=== PATIENT | female | born 1980 ===

== ENCOUNTER 2018-04-25 09:06 | Emergency (ER) | payer SELFPAY ==
[2018-04-25 09:12] VITALS: BMI 35.4
[2018-04-25 09:14] VITALS: TEMP 98.3; O2SAT 98
--- NOTE | 2018-04-25 09:32 | ED PDOC ---
HPI: CCC, URI, Sore Throat Time Seen by Provider: 04/25/18 09:09 Chief Complaint (Nursing): Fever Chief Complaint (Provider): Cough History Per: Patient History/Exam Limitations: no limitations Onset/Duration Of Symptoms: Days (x 6) Current Symptoms Are (Timing): Still Present Associated Symptoms: Cough Additional Complaint(s): 37 year old female with no significant medical history presents to the ED with a non productive cough associated with back pain for 6 days. Patient reports back pain is only when coughing. She also states that she experienced one episode of vomiting 2 days ago and none since. Denies fever and shortness of breath. PMD: none provided Past Medical History Reviewed: Historical Data, Nursing Documentation, Vital Signs Vital Signs: Last Vital Signs Temp 98.3 F 04/25/18 09:12 Pulse 72 04/25/18 09:12 Resp 17 04/25/18 09:12 BP 107/74 04/25/18 09:12 Pulse Ox 98 04/25/18 09:12 - Medical History PMH: No Chronic Diseases - Surgical History Surgical History: No Surg Hx - Family History Family History: States: Unknown Family Hx - Home Medications Home Medications: Ambulatory Orders Medication Instructions Recorded Azithromycin [Zithromax] 250 mg PO DAILY #6 tab 04/25/18 Benzonatate [Tessalon Perle] 100 mg PO Q8 #12 capsule 04/25/18 - Allergies Allergies/Adverse Reactions: Allergies Allergy/AdvReac Type Severity Reaction Status Date / Time No Known Allergies Allergy Verified 04/25/18 09:29 Review of Systems ROS Statement: Except As Marked, All Systems Reviewed And Found Negative Constitutional: Negative for: Fever Respiratory: Positive for: Cough (non-productive). Negative for: Shortness of Breath Gastrointestinal: Positive for: Vomiting (1 episode 2 days ago) Musculoskeletal: Positive for: Back Pain (when coughing) Physical Exam - Reviewed Nursing Documentation Reviewed: Yes Vital Signs Reviewed: Yes - Physical Exam Appears: Positive for: Non-toxic, No Acute Distress Head Exam: Positive for: ATRAUMATIC, NORMAL INSPECTION, NORMOCEPHALIC Skin: Positive for: Normal Color, Warm, Dry Eye Exam: Positive for: EOMI, Normal appearance, PERRL Neck: Positive for: Normal, Painless ROM, Supple Cardiovascular/Chest: Positive for: Regular Rate, Rhythm. Negative for: Murmur Respiratory: Positive for: Rhonchi (scattered rhonchi bilaterally). Negative for: Wheezing, Respiratory Distress Gastrointestinal/Abdominal: Positive for: Normal Exam, Soft. Negative for: Tenderness Extremity: Positive for: Normal ROM. Negative for: Tenderness, Deformity Neurologic/Psych: Positive for: Alert, Oriented. Negative for: Motor/Sensory Deficits - ECG O2 Sat by Pulse Oximetry: 98 (RA) Pulse Ox Interpretation: Normal Medical Decision Making Medical Decision Makin:28 Impression: cough and back pain Initial Plan: --CXR Scribe Attestation: Documented by Lucila Owusu, acting as a scribe for Rico Renee MD Provider Scribe Attestation: All medical record entries made by the Scribe were at my direction and personally dictated by me. I have reviewed the chart and agree that the record accurately reflects my personal performance of the history, physical exam, medical decision making, and the department course for this patient. I have also personally directed, reviewed, and agree with the discharge instructions and disposition. Disposition - Clinical Impression Clinical Impression: Bronchitis - Patient ED Disposition Is Patient to be Admitted: No Counseled Patient/Family Regarding: Studies Performed, Diagnosis, Need For Followup, Rx Given - Disposition Referrals: [facility] [Outside] Disposition: Routine/Home Disposition Time: 10:13 Condition: FAIR Prescriptions: Azithromycin [Zithromax] 250 mg PO DAILY #6 tab Benzonatate [Tessalon Perle] 100 mg PO Q8 #12 capsule Instructions: Acute Bronchitis Forms: [facility] (Malay) Print Language: ICELANDIC
--- NOTE | 2018-04-25 10:33 | RAD ---
Date of service: 04/25/2018 HISTORY: Cough COMPARISON: No prior. TECHNIQUE: Chest PA and lateral FINDINGS: LINES AND TUBES: None. LUNG AND PLEURA: The lungs are well inflated and clear. No pleural effusion or pneumothorax. HEART AND MEDIASTINUM: The heart is not enlarged. No aortic atherosclerotic calcification present. The hilar and mediastinal contours are within normal limits. SKELETAL STRUCTURES: The bony structures are within normal limits for the patient's age. VISUALIZED UPPER ABDOMEN: Normal. OTHER FINDINGS: None. IMPRESSION: No active pulmonary disease.
[2018-04-25 10:34] VITALS: BP 116/70; PULSE 76; RESP 18
== END 2018-04-25 10:28 | disposition home or self-care (01) ==
LOC: H.ER 09:06
DX: J40 Bronchitis, not specified as acute or chronic (principal)

== ENCOUNTER 2018-09-27 11:05 | Emergency (ER) | payer OTHER ==
[2018-09-27 11:10] VITALS: BMI 40.6
--- NOTE | 2018-09-27 11:22 | ED PDOC ---
HPI: Abdomen Time Seen by Provider: 09/27/18 11:14 Chief Complaint (Nursing): Abdominal Pain History Per: Patient Onset/Duration Of Symptoms: Days (2) Current Symptoms Are (Timing): Still Present Severity: Moderate Location Of Pain/Discomfort: RLQ Associated Symptoms: Nausea. denies: Fever, Vomiting, Diarrhea, Urinary Symptoms Exacerbating Factors: None Additional Complaint(s): RLQ abd pain assoc with nausea since yesterday. No vomiting or diarrhea. Denies urinary sxs. LMP 2 weeks ago. Denies vaginal bleeding or discharge. Past Medical History Vital Signs: Last Vital Signs Temp 98.4 F 09/27/18 11:11 Pulse 72 09/27/18 11:11 Resp 16 09/27/18 11:11 BP 116/72 09/27/18 11:11 Pulse Ox 97 09/27/18 11:11 - Medical History PMH: No Chronic Diseases - Family History Family History: States: Unknown Family Hx - Home Medications Home Medications: Ambulatory Orders Medication Instructions Recorded Azithromycin [Zithromax] 250 mg PO DAILY #6 tab 04/25/18 Benzonatate [Tessalon Perle] 100 mg PO Q8 #12 capsule 04/25/18 - Allergies Allergies/Adverse Reactions: Allergies Allergy/AdvReac Type Severity Reaction Status Date / Time No Known Allergies Allergy Verified 09/27/18 11:19 Review of Systems ROS Statement: Except As Marked, All Systems Reviewed And Found Negative Gastrointestinal: Positive for: Nausea, Abdominal Pain Physical Exam - Reviewed Nursing Documentation Reviewed: Yes Vital Signs Reviewed: Yes - Physical Exam Appears: Positive for: Non-toxic, No Acute Distress Head Exam: Positive for: ATRAUMATIC, NORMAL INSPECTION, NORMOCEPHALIC Skin: Positive for: Normal Color, Warm, DRY Eye Exam: Positive for: EOMI, Normal appearance, PERRL ENT: Positive for: Normal ENT Inspection Neck: Positive for: Normal, Painless ROM Cardiovascular/Chest: Positive for: Regular Rate, Rhythm Respiratory: Positive for: CNT, Normal Breath Sounds Gastrointestinal/Abdominal: Positive for: Soft, Tenderness (RLQ). Negative for: Rebound Back: Positive for: Normal Inspection Extremity: Positive for: Normal ROM Neurological/Psych: Positive for: Awake, Alert, Normal Tone - Laboratory Results Result Diagrams: 09/27/18 11:40 09/27/18 12:27 - ECG O2 Sat by Pulse Oximetry: 97 Disposition - Clinical Impression Clinical Impression: Abdominal pain in female - Patient ED Disposition Is Patient to be Admitted: Transfer of Care - Disposition Disposition: Transfer of Care Disposition Time: 15:22 Condition: FAIR Forms: [facility] (Danish) Patient Signed Over To: Anna Avina (Pending ultrasound and reeval)
[2018-09-27 11:59] LABS: BASO % 0.6 % (0.0-2.0); EOS # 0.3 K/uL (0.0-0.7); EOS % 3.3 % (0.0-4.0); HEMOGLOBIN 11.7 g/dL (12.0-16.0); LYMPH # 2.9 K/uL (1.0-4.3); MEAN CELL VOLUME 85.2 fl (81.0-99.0); MEAN CORPUSCULAR HEMOGLOBIN 27.9 pg (27.0-31.0); MEAN CORPUSCULAR HGB CONC 32.8 g/dL (33.0-37.0); MEAN PLATELET VOLUME 7.3 fl (7.2-11.7); MONO # 0.7 K/uL (0.0-0.8); MONO % 8.1 % (0.0-10.0); NEUT # 4.2 K/uL (1.8-7.0); NRBC % 0.1 % (0.0-0.0); RBC 4.18 Mil/uL (3.80-5.20); RED CELL DISTRIBUTION WIDTH 14.6 % (11.5-14.5); WHITE BLOOD COUNT 8.2 K/uL (4.8-10.8)
[2018-09-27] MEDS ORDERED: Sodium Chloride 0.9% 50 ML IV ONE (12:42)
[2018-09-27] MEDS ORDERED: Iohexol 300 100 ML IJ ONE (12:42)
[2018-09-27 13:04] LABS: ALB/GLOB RATIO 1.2 (1.0-2.1); ALBUMIN 3.9 g/dL (3.5-5.0); BLOOD UREA NITROGEN 9 mg/dl (7-17); CALCIUM 8.7 mg/dL (8.4-10.2); GFR NON-AFRICAN AMERICAN > 60
[2018-09-27 13:05] LABS: ALT/SGPT 24 U/L (9-52); AST/SGOT 30 U/L (14-36)
--- NOTE | 2018-09-27 14:15 | CT ---
Date of service: 2018-09-27 13:17:59 PROCEDURE: CT abdomen and pelvis HISTORY: Abdominal pain COMPARISON: No prior study available for comparison TECHNIQUE: Contiguous axial images of the abdomen and pelvis performed in standard fashion following oral and intravenous injection of approximately 95 cc Omnipaque 300 contrast material. Additional 2D sagittal and coronal reformats generated. Radiation dose: Total exam DLP = 948.04 mGy-cm. This CT exam was performed using one or more of the following dose reduction techniques: Automated exposure control, adjustment of the mA and/or kV according to patient size, and/or use of iterative reconstruction technique. FINDINGS: LOWER THORAX: Heart is mildly enlarged. No significant pericardial effusion. There is a tiny hiatal hernia. LIVER: Liver is mildly enlarged measuring nearly 20 cm in CC dimension. Mild to moderate diffuse fatty hepatic infiltration. No obvious hepatic mass collection or calcification. GALLBLADDER AND BILE DUCTS: Physiologically distended. No evidence of urinary gallbladder calculi. PANCREAS: Pancreas is unremarkable without mass collection or calcification. SPLEEN: Spleen exhibits normal size and attenuation pattern without mass collection or calcification. ADRENALS: No adrenal lesions. KIDNEYS AND URETERS: Unremarkable. No stone or hydronephrosis. Kidneys demonstrate symmetric nephrograms. No evidence of nephrolithiasis or hydronephrosis. No obvious renal mass or collection. BLADDER: Urinary bladder is incompletely distended with slight thick-walled appearance. Rule out cystitis REPRODUCTIVE: There is a large right-sided adnexal cyst which measures approximately 5.2 x 4.6 cm. No gross free fluid seen in the cul de sac. APPENDIX: Normal appendix. BOWEL: Evaluation of the bowel is slightly limited due to the lack of oral contrast material. The stomach is incompletely distended with slight thick-walled appearance. Visualized loops of small bowel exhibit normal contour and caliber. No evidence of acute mechanical small bowel obstruction. Large bowel appears unremarkable without definitive mural wall thickening. PERITONEUM: Unremarkable. No fluid collection. No free air. There is a small medium-sized fat containing umbilical hernia. LYMPH NODES: Unremarkable. No enlarged lymph nodes. VASCULATURE: Unremarkable. No aortic aneurysm. No aortic atherosclerotic calcification or mural plaque present. BONES: Minimal marginal anterior osteophyte formation seen at several levels no acute fractures. OTHER FINDINGS: None. IMPRESSION: Large right-sided adnexal cyst. Mild hepatomegaly with moderate to moderate fatty hepatic infiltration. Small to medium sized fat containing umbilical hernia.
--- NOTE | 2018-09-27 15:41 | US ---
Date of service: 09/27/2018 HISTORY: RLQ pain LMP 2 weeks ago COMPARISON: CT abdomen and pelvis performed earlier the same day. TECHNIQUE: Transabdominal and transvaginal pelvic ultrasound was performed. FINDINGS: UTERUS: Measures 9.2 x 7.4 x 5.8 cm. Anteverted and enlarged. There is heterogeneous myometrial echotexture. No fibroid or other mass lesion seen. ENDOMETRIUM: Measures 5.0 mm in diameter. Normal in appearance. CERVIX: No cervical abnormality identified. RIGHT OVARY: Measures 3.7 x 3.2 x 2.9 cm. No solid mass. Normal flow. There is a 4.7 x 6.0 x 4.1 cm cystic mass in the right adnexa. There is a 1.8 x 2.1 x 1.7 cm ovarian cyst. LEFT OVARY: Not visualized. FREE FLUID: No significant free fluid noted. OTHER FINDINGS: None. IMPRESSION: 4.7 x 6.0 x 4.1 cm cystic mass in the right adnexa could represent an exophytic ovarian cyst, cystadenoma, cystadenocarcinoma or parametrial cyst. No evidence for torsion. Clinical follow-up is advised and follow-up ultrasound in 3-6 month interval is recommended to assess stability/resolution of this cyst.
--- NOTE | 2018-09-27 16:10 | ED PDOC ---
- Laboratory Results Result Diagrams: 09/27/18 11:40 09/27/18 12:27 Lab Results: Total Bilirubin 0.5 mg/dl (0.2-1.3) 09/27/18 12:27 AST 30 U/L (14-36) 09/27/18 12:27 ALT 24 U/L (9-52) 09/27/18 12:27 Alkaline Phosphatase 65 U/L (38-126) 09/27/18 12:27 Total Protein 7.3 G/DL (6.3-8.2) 09/27/18 12:27 Albumin 3.9 g/dL (3.5-5.0) 09/27/18 12:27 Globulin 3.3 gm/dL (2.2-3.9) 09/27/18 12:27 Albumin/Globulin Ratio 1.2 (1.0-2.1) 09/27/18 12:27 - ECG O2 Sat by Pulse Oximetry: 97 - Progress ED Course And Treament: 320p Rec'd endorsement from Dr Renee. Pt with RLQ pain and CT demonstrated no appendicitis, but RIGHT ovarian abnormality. Pending US. Reviewed labs which demonstrate no clinically signficant abnormalities. Accession No. : [id number] Patient Name / ID : YUNIEL ALVARADO / [id number] Exam Date : 09/27/2018 14:20:05 ( Approved ) Study Comment : Sex / Age : F / 38Y Creator : Taylor Ferrell MD Dictator : Taylor Ferrell MD Qa Tester : Putty Remover : Taylor Ferrell MD Approver2 : Report Date : 09/27/2018 15:37:46 My Comment : Date of service: 09/27/2018 HISTORY: RLQ pain LMP 2 weeks ago COMPARISON: CT abdomen and pelvis performed earlier the same day. TECHNIQUE: Transabdominal and transvaginal pelvic ultrasound was performed. FINDINGS: UTERUS: Measures 9.2 x 7.4 x 5.8 cm. Anteverted and enlarged. There is heterogeneous myometrial echotexture. No fibroid or other mass lesion seen. ENDOMETRIUM: Measures 5.0 mm in diameter. Normal in appearance. CERVIX: No cervical abnormality identified. RIGHT OVARY: Measures 3.7 x 3.2 x 2.9 cm. No solid mass. Normal flow. There is a 4.7 x 6.0 x 4.1 cm cystic mass in the right adnexa. There is a 1.8 x 2.1 x 1.7 cm ovarian cyst. LEFT OVARY: Not visualized. FREE FLUID: No significant free fluid noted. OTHER FINDINGS: None. IMPRESSION: 4.7 x 6.0 x 4.1 cm cystic mass in the right adnexa could represent an exophytic ovarian cyst, cystadenoma, cystadenocarcinoma or parametrial cyst. No evidence for torsion. Clinical follow-up is advised and follow-up ultrasound in 3-6 month interval is recommended to assess stability/resolution of this cyst. DW pt findings. Pt to be discharged with followup Clinic for further management. NSAIDs for pain. Return parameters discussed. Condition: Improved Disposition - Clinical Impression Clinical Impression: Ovarian cyst - POA Present On Arrival: None - Disposition Referrals: [facility] [Outside] [facility] [Outside] Disposition: Routine/Home Disposition Time: 16:00 Condition: IMPROVED Additional Instructions: [facility] A [facility] A HACER ROSANNA MAURICIO PROXIMA SEMANA REGRESA SI [facility] Prescriptions: Acetaminophen [Tylenol Extra Strength] 1,000 mg PO Q6 PRN #100 tablet PRN Reason: FEVER OR PAIN Naproxen [Naprosyn] 1 tab PO BID PRN #30 tab PRN Reason: Pain Instructions: Acute Abdomen (Belly Pain), Adult (DC), Ovarian Cyst (DC) Print Language: LITHUANIAN
[2018-09-27 17:38] VITALS: BP 136/71; PULSE 63; RESP 17; TEMP 97.7; O2SAT 100
== END 2018-09-27 17:08 | disposition home or self-care (01) ==
LOC: H.ER 11:05
DX: R10.2 Pelvic and perineal pain (principal); N83.209 Unspecified ovarian cyst, unspecified side
CPT/HCPCS: 74177; 76830; 80053; 81025; 85025; 99284; Q9967